=== PATIENT | female | born 2000 | race African-American/Black ===

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

== ENCOUNTER 2021-08-19 15:40 | Emergency (ER) | payer MEDICAID ==
[~2021-08-19] VITALS: Ht 165.1 cm; Wt 59.0 kg
[2021-08-19 16:20] VITALS: BP 123/76
[2021-08-19] MEDS ORDERED: BENZ-16 MT (16:41)
== END 2021-08-19 16:54 | disposition home or self-care (01) ==
LOC: ER 15:40
DX: J06.9 Acute upper respiratory infection, unspecified (principal); J45.909 Unspecified asthma, uncomplicated; Z20.822 Contact with and (suspected) exposure to COVID-19
CPT/HCPCS: 71045; 99284; C9803; U0003; U0005

== ENCOUNTER 2021-08-21 10:26 | Emergency (ER) | payer MEDICAID ==
[~2021-08-21] VITALS: Ht 157.5 cm; Wt 60.0 kg
[~2021-08-21 10:26] MED LIST: BENZ-16 MT
[2021-08-21 11:25] VITALS: BP 116/88
[2021-08-21] MEDS ORDERED: FLOV44 INH (11:52)
[2021-08-21] MEDS ORDERED: TOPUD MT (11:52)
[2021-08-21] MEDS ORDERED: ALBU6.7H9 INH (11:52)
== END 2021-08-21 14:11 | disposition home or self-care (01) ==
LOC: ER 10:26
DX: U07.1 COVID-19 (principal); Z76.0 Encounter for issue of repeat prescription
CPT/HCPCS: 99283

== ENCOUNTER 2021-11-04 11:26 | Emergency (ER) | payer SELFPAY ==
[~2021-11-04] VITALS: Ht 165.1 cm; Wt 59.0 kg
[~2021-11-04 11:26] MED LIST changes: +ALBU6.7H9 INH; +FLOV44 INH; +TOPUD MT
[2021-11-04] MEDS ORDERED: AMOXICILLIN/POTASSIUM CLAVULANATE 875/125MG TAB PO ONE (11:45)
[2021-11-04] MEDS ORDERED: HYDROCODONE/ACETAMINOPHEN 5/325MG TABLET PO ONE (11:45)
[2021-11-04] MEDS ORDERED: BACITRACIN ZINC OINT UDPKT TOP ONE (11:45)
[2021-11-04] MEDS ORDERED: TETANUS, DIPHTHERIA, PERTUSSIS VAC/PF 0.5ML (>10YR OLD) IM ONE (12:00)
[2021-11-04] MEDS ORDERED: AMOX-424 MT (13:32)
[2021-11-04 13:41] VITALS: BP 125/75
== END 2021-11-04 13:40 | disposition home or self-care (01) ==
LOC: ER 11:26
DX: S61.552A Open bite of left wrist, initial encounter (principal); M79.18 Myalgia, other site; W50.3XXA Accidental bite by another person, initial encounter; Y93.89 Activity, other specified; Y92.89 Other specified places as the place of occurrence of the external cause; Y99.8 Other external cause status; F41.9 Anxiety disorder, unspecified; J45.909 Unspecified asthma, uncomplicated; F17.290 Nicotine dependence, other tobacco product, uncomplicated; Z79.899 Other long term (current) drug therapy
CPT/HCPCS: 73110; 73130; 90471; 90715; 99284

== ENCOUNTER 2022-08-12 18:58 | Emergency (ER) | payer MEDICAID ==
[~2022-08-12] VITALS: Ht 165.1 cm; Wt 58.0 kg
[~2022-08-12 18:58] MED LIST changes: +ALBU6.7H3 INH; -ALBU6.7H9 INH; +AMOX-424 MT
[2022-08-12] MEDS ORDERED: IBUPROFEN 600MG TABLET PO ONE (19:15)
[2022-08-12] MEDS ORDERED: LORAZEPAM 0.5MG TABLET PO ONE (19:15)
[2022-08-12] MEDS ORDERED: ALBU6.7H3 INH (21:28)
[2022-08-12] MEDS ORDERED: IBUP-2029 MT (21:28)
[2022-08-12 21:47] VITALS: BP 125/81
== END 2022-08-12 21:49 | disposition home or self-care (01) ==
LOC: ER 18:58
DX: M79.642 Pain in left hand (principal); M79.641 Pain in right hand; F41.0 Panic disorder [episodic paroxysmal anxiety]
CPT/HCPCS: 73130; 99283

== ENCOUNTER 2022-12-21 11:53 | Emergency (ER) | payer MEDICAID ==
[~2022-12-21] VITALS: Ht 157.5 cm; Wt 64.0 kg
[~2022-12-21 11:53] MED LIST changes: +IBUP-2029 MT
[2022-12-21 13:12] LABS: BASOPHILS % 0.2 % (0.0-2.0); EOSINOPHILS % 0.3 % (0.0-5.0); HEMATOCRIT. 36.7 % (36.0-48.0); HEMOGLOBIN. 12.5 g/dL (12.0-16.0); LYMPHOCYTES % 16.2 % (20.0-50.0); MEAN CORPUSCULAR HEMOGLOBIN 32.7 pg (28.0-32.0); MEAN CORPUSCULAR VOLUME 95.8 fL (81.0-99.0); MEAN PLATELET VOLUME 9.6 fl (7.4-10.4); NEUTROPHILS % 74.3 % (40.0-76.0); PLATELET 166 x1000/uL (130-400); RED BLOOD CELL COUNT 3.83 mill/uL (4.2-5.4); RED CELL DISTRIBUTION WIDTH 13.3 % (11.6-14.6)
[2022-12-21 13:20] LABS: CHLORIDE 108 mEq/L (98-107)
[2022-12-21 13:32] LABS: HCG SCREEN NEGATIVE
[2022-12-21] MEDS ORDERED: IOHEXOL-300 100 ML BOTTLE ONE ×2 (15:25→20:32)
[2022-12-21] MEDS ORDERED: AMPICILLIN SOD/SULBACTAM NA 3 G in SODIUM CHLORIDE 0.9% 100 ML IV SCH (17:00)
[2022-12-21] MEDS ORDERED: KETOROLAC 30MG/ML VIAL IV ONE (17:45)
[2022-12-21 18:53] VITALS: BP 110/56
== END 2022-12-21 19:21 | disposition left against medical advice (07) ==
LOC: ER 12:34
DX: K04.7 Periapical abscess without sinus (principal); F41.9 Anxiety disorder, unspecified; J45.909 Unspecified asthma, uncomplicated; Z79.899 Other long term (current) drug therapy
CPT/HCPCS: 36415; 70487; 80048; 84703; 85025; 96365; 96375; 99285; J0295; J1885; J7050; Q9967; Z7610

== ENCOUNTER 2023-12-18 12:22 | Emergency (ER) | payer MEDICAID ==
[~2023-12-18] VITALS: Ht 165.1 cm; Wt 57.7 kg
[2023-12-18 12:31] VITALS: O2SAT 99
[2023-12-18] MEDS: ACETAMINOPHEN 325MG TABLET PO ONE (13:00)
[2023-12-18] MEDS ORDERED: ACET325T52 MT (14:46)
[2023-12-18 15:05] VITALS: BP 98/64; PULSE 64; RESP 18; TEMP 98.2
== END 2023-12-18 19:45 | disposition home or self-care (01) ==
LOC: ER 13:05
DX: S60.222A Contusion of left hand, initial encounter (principal); S60.221A Contusion of right hand, initial encounter; F41.9 Anxiety disorder, unspecified; J45.909 Unspecified asthma, uncomplicated; Z79.899 Other long term (current) drug therapy; X58.XXXA Exposure to other specified factors, initial encounter; Y93.89 Activity, other specified; Y92.89 Other specified places as the place of occurrence of the external cause; Y99.8 Other external cause status
CPT/HCPCS: 73130; 99283

== ENCOUNTER 2024-04-20 13:04 | Emergency (ER) | payer MEDICAID ==
[~2024-04-20] VITALS: Ht 162.6 cm; Wt 59.0 kg
[~2024-04-20 13:04] MED LIST changes: +ACET325T52 MT
[2024-04-20] MEDS: LORAZEPAM 2MG/ML INJ IV ONE (13:22)
[2024-04-20 13:26] VITALS: PULSE 111; RESP 22; O2SAT 100
[2024-04-20] MEDS: ALBUTEROL (0.083%) 2.5MG/3ML NEB HHN STA (13:26)
[2024-04-20 13:43] VITALS: BP 96/63; PULSE 88; RESP 13; TEMP 98.3
[2024-04-20] MEDS ORDERED: FLUT1BLS12 IH (13:48)
[2024-04-20] MEDS ORDERED: ALBU6.7H15 INH (13:48)
== END 2024-04-20 14:17 | disposition home or self-care (01) ==
LOC: ER 13:14
DX: F45.8 Other somatoform disorders (principal); J45.909 Unspecified asthma, uncomplicated; Z79.899 Other long term (current) drug therapy
CPT/HCPCS: 71045; 94640; 93005; 96374; 99283; J2060; Z7610 ×5

== ENCOUNTER 2024-05-06 10:45 | Emergency (ER) | payer MEDICAID ==
[~2024-05-06 10:45] MED LIST changes: +ALBU6.7H15 INH; +FLUT1BLS12 IH
[2024-05-06] MEDS: LORAZEPAM 2MG/ML INJ IM STA (11:01)
[2024-05-06 11:31] VITALS: BP 106/60; PULSE 65; RESP 12; TEMP 98
== END 2024-05-06 11:53 | disposition home or self-care (01) ==
LOC: ER 10:45
DX: F41.9 Anxiety disorder, unspecified (principal); J45.909 Unspecified asthma, uncomplicated; Z79.899 Other long term (current) drug therapy
CPT/HCPCS: 96372; 99283; J2060; Z7610 ×3

== ENCOUNTER 2024-07-28 14:24 | Emergency (ER) | payer MEDICAID ==
[~2024-07-28] VITALS: Ht 165.1 cm; Wt 58.0 kg
[2024-07-28 14:29] VITALS: BP 111/68; PULSE 126; RESP 40; TEMP 98; O2SAT 100
== END 2024-07-28 17:40 | disposition left against medical advice (07) ==
LOC: ER 14:24
DX: F41.9 Anxiety disorder, unspecified (principal); S60.221A Contusion of right hand, initial encounter; J45.909 Unspecified asthma, uncomplicated; F12.10 Cannabis abuse, uncomplicated; Z79.899 Other long term (current) drug therapy; X58.XXXA Exposure to other specified factors, initial encounter; Y93.9 Activity, unspecified; Y92.89 Other specified places as the place of occurrence of the external cause; Y99.8 Other external cause status
CPT/HCPCS: 99281

== ENCOUNTER 2024-12-18 14:24 | Emergency (ER) | payer MEDICAID ==
[~2024-12-18] VITALS: Ht 160 cm; Wt 43.0 kg
[~2024-12-18 14:24] MED LIST changes: +ACET-3800 MT; -ACET325T52 MT
[2024-12-18 14:28] VITALS: BP 105/49; PULSE 77; RESP 18; TEMP 37.4; O2SAT 100
[2024-12-18] MEDS: HYDROCODONE/ACETAMINOPHEN 5/325MG TABLET PO STA (15:35)
[2024-12-18] MEDS: TETRACAINE 0.5% OPHTH DROPS 4ML LEFTEYE ONE (15:48)
[2024-12-18] MEDS: FLUORESCEIN SODIUM 1MG/STRIP LEFTEYE ONE (15:48)
[2024-12-18] MEDS: BALANCED SALT IRRIG SOLN 15ML IR ONE (15:48)
[2024-12-18] MEDS ORDERED: CYCL5TAB3 MT (17:53)
[2024-12-18] MEDS ORDERED: NAPR-681 PO (17:53)
== END 2024-12-18 18:00 | disposition home or self-care (01) ==
LOC: ER 14:24
DX: S00.83XA Contusion of other part of head, initial encounter (principal); M54.9 Dorsalgia, unspecified; M79.672 Pain in left foot; J45.909 Unspecified asthma, uncomplicated; I10 Essential (primary) hypertension; Z79.51 Long term (current) use of inhaled steroids; V89.2XXA Person injured in unspecified motor-vehicle accident, traffic, initial encounter; Y93.89 Activity, other specified; Y92.89 Other specified places as the place of occurrence of the external cause; Y99.8 Other external cause status
CPT/HCPCS: 70480; 72100; 73630; 99284